=== PATIENT | male | born 1980 | race Caucasian/White ===

== ENCOUNTER 2022-01-25 08:02 | Day surgery (SDC) | payer OTHER, SELFPAY ==
[2022-01-22 13:25] VITALS: BMI 31.1
[2022-01-25 08:20] VITALS: BP 119/66; PULSE 76; RESP 18; TEMP 36.5; O2SAT 99
--- NOTE | 2022-01-25 08:20 | W.PM.OPSFHP ---
Same Day Surgery H&P Indication for Procedure/HPI DATE OF PROCEDURE: January 25, 2022 CHIEF COMPLAINT/INDICATIONFOR SURGICAL PROCEDURE: I am here for I am here for colonoscopy PREOP DIAGNOSIS: History of Crohn's disease PLANNED PROCEDURE: Operation Date: 01/25/22 09:30 Proposed Procedures p Colonoscopy 90353/bleeding per rectum K62.5/cronhs dis K50.90/(Not Applicable) - Иван Gramajo MD 11/22/2021 This is a pleasant 41 years old gentleman with well-known history of Crohn's disease and has been treated by medical community arts officer in the past.? I have seen the patient back in 2018 and did perform an EGD and colonoscopy where findings were normal of the EGD he had a colonoscopy did show terminal ileitis.? And patient was supposed to be followed up on by medical gastroenterology to manage his Crohn's disease medically but for some unclear reason that did not take place. Patient has issues with balance and riding a car creates a lot of issues for him and he would prefer to stay local if he does not have to go to [facility]. 01/25/2022 Patient comes today for colonoscopy for surveillance purposes ROS All systems have been reviewed negative except as for the above or per problem list. Medications/Allergies* Home Medications Medication Instructions Recorded Confirmed Type ascorbate calcium (vitamin C) 500 500 mg PO DAILY 11/22/21 01/22/22 History mg tablet lansoprazole 30 mg capsule,delayed 30 mg PO DAILY 11/22/21 01/22/22 History release (Prevacid) acetaminophen-caffeine 500 mg-65 2 tab PO Q12H PRN 01/22/22 01/22/22 History mg tablet (Excedrin Tension Headache) albuterol sulfate 90 mcg/actuation 2 puff INHALATION QID PRN 01/22/22 01/22/22 History aerosol inhaler (ProAir HFA) diphenhydramine HCl 25 mg capsule 25 mg PO BEDTIME PRN 01/22/22 01/22/22 History (Benadryl) fexofenadine 60 mg tablet (Martha 60 mg PO DAILY 01/22/22 01/22/22 History Allergy) losartan 25 mg tablet 25 mg PO BEDTIME 01/22/22 01/24/22 History Allergies/Adverse Reactions Allergy/AdvReac Type Severity Reaction Status Date / Time iodine Allergy Severe swelling Verified 01/25/22 08:24 latex Allergy Severe hives Verified 01/25/22 08:24 povidone-iodine Allergy Severe hives Verified 01/25/22 08:24 [From Betadine] shellfish derived Allergy Severe hives Verified 01/25/22 08:24 Pertinent History/Comorbid Conditions* Family History (Updated 11/22/21 @ 10:40 by Vandana Pandya) Diabetes CAD (coronary artery disease) Dementia Cancer Stroke Social History Smoking and tobacco status: former smoker Alcohol intake: never Lives independently: Yes Household members: spouse and children Marital status: Pertinent Exam Findings alert, oriented x 3, regular rate & rhythm and procedure specific exam findings (Abdominal exam is soft with mild tenderness left lower quadrant) Recommendations Surgery/Procedure today (Colonoscopy with possible biopsy) Coding Level of Care Code Acute Art Appraiser for Anne Marie Freeman
[2022-01-25] MEDS: sodium chloride 0.9% 1,000 ML 30 ML IV (08:41)
--- NOTE | 2022-01-25 09:00 | ANES.PREANE2 ---
Pre-Anesthetic Assessment Height/Weight: Height 1.93 m Weight 116.12 kg Temp Pulse Resp BP Pulse Ox 97.7 F 76 18 119/66 99 01/25/22 08:20 01/25/22 08:20 01/25/22 08:20 01/25/22 08:20 01/25/22 08:20 Preop Diagnosis: History of Crohn's disease Operation Date: 01/25/22 09:30 Proposed Procedures p Colonoscopy 25957/bleeding per rectum K62.5/cronhs dis K50.90/(Not Applicable) - Иван Gramajo MD Familial anesthetic complications: none Was Beta Jacque taken within 24 hours: N/A Was Clonidine taken within 24 hours: N/A Last intake: Intake Last Liquid Date 01/24/22 Last Liquid Time 22:00 Last Solid Date 01/23/22 Last Solid Time 20:00 Social No alcohol and No tobacco Exam alert, oriented x 3, clear to auscultation bilaterally and regular rate & rhythm Airway Submandibular: within normal limits Cervical ROM: within normal limits Mallampati: Class III Dentition: full Pulmonary None reported CV/HEM None reported None reported Hepatic None reported GI Gastroesophageal Reflux Disease Crohn's Metabolic None reported Musc/skel None reported Neuropsych Dizziness with standing/walking limiting un assisted mobility after [place] farm Anesthetic Plan ASA status: 2 Anesthesia: Anesthesia Evaluation, General and MAC Other: I discussed with the patient risks, goals, and benefits of MAC and general anesthesia. We discussed spectrum of MAC anesthesia including conversion to general as well as possibility of recall of intraoperative stimuli including discomfort/pain. Patient agrees to proceed with MAC. Risk of > 500 ml blood loss (7ml/kg in children): No Medications/Allergies Home Medications Medication Instructions Recorded Confirmed Last Taken Type ascorbate calcium (vitamin C) 500 500 mg PO DAILY 11/22/21 01/25/22 01/24/22 History mg tablet lansoprazole 30 mg capsule,delayed 30 mg PO DAILY 11/22/21 01/25/22 01/25/22 05:15 History release (Prevacid) acetaminophen-caffeine 500 mg-65 2 tab PO Q12H PRN 01/22/22 01/25/22 01/25/22 05:15 History mg tablet (Excedrin Tension Headache) albuterol sulfate 90 mcg/actuation 2 puff INHALATION QID PRN 01/22/22 01/25/22 1 Week Ago History aerosol inhaler (ProAir HFA) ~01/18/22 diphenhydramine HCl 25 mg capsule 25 mg PO BEDTIME PRN 01/22/22 01/25/22 01/23/22 History (Benadryl) fexofenadine 60 mg tablet (Martha 60 mg PO DAILY 01/22/22 01/25/22 01/24/22 History Allergy) losartan 25 mg tablet 25 mg PO BEDTIME 01/22/22 01/25/22 01/24/22 18:00 History Allergies Allergy/AdvReac Type Severity Reaction Status Date / Time iodine Allergy Severe swelling Verified 01/25/22 08:32 latex Allergy Severe hives Verified 01/25/22 08:32 povidone-iodine Allergy Severe hives Verified 01/25/22 08:32 [From Betadine] shellfish derived Allergy Severe hives Verified 01/25/22 08:32 Current Medications Generic Name Dose Route Start Last Admin Trade Name Freq PRN Reason Stop Dose Admin Sodium Chloride 1,000 mls @ 30 mls/hr 01/25/22 08:15 01/25/22 08:41 Sodium Chloride 0.9% IV 01/26/22 08:14 30 mls/hr .Q24H JOSE J Administration PFSH Anesthesia Family History Other CAD (coronary artery disease) Cancer Dementia Diabetes Stroke Social History Smoking and tobacco status: former smoker Alcohol intake: never Lives independently: Yes Household members: spouse and children Marital status: Data Anesthesia Cardiac Studies: No Data to Display
[2022-01-25] MEDS: ondansetron 2 mg/ML SDV 2 mL 4 MG IVP (09:02)
[2022-01-25] MEDS: famotidine 20 mg/2 mL INJ IVP (09:03)
[2022-01-25 09:43] VITALS: BP 109/65; PULSE 63; RESP 17; TEMP 36.1; O2SAT 92
--- NOTE | 2022-01-25 09:50 | ANE.PACU2 ---
Documented by User: Corina Gallegos CRNA 01/25/22 09:50 Inpatient post-anesthesia follow up: Airway intact: Yes Vital signs: Temperature 97 F Pulse Rate 17 Respiratory Rate 17 Blood Pressure 109/65 Pulse Oximetry 92 Oxygen Delivery Me thod Room Air Oxygen Flow Rate Fraction of Inspir ed Oxygen Hydration adequate: Yes Nausea and vomiting: No Pain level: 1 Mental status: Baseline
[2022-01-25 09:52] VITALS: BP 128/62; PULSE 60; RESP 16; O2SAT 97
== END 2022-01-25 10:10 | disposition home or self-care (01) ==
PROVIDERS: PCP Nurse Practitioner Family; Visit Provider Surgery
PROC: 0DJD8ZZ Inspection of Lower Intestinal Tract, Via Natural or Artificial Opening Endoscopic (ICD-10-PCS; CPT 45378; principal; 2022-01-25 09:30)
DX: K62.5 Hemorrhage of anus and rectum (principal); K50.90 Crohn's disease, unspecified, without complications; K57.30 Diverticulosis of large intestine without perforation or abscess without bleeding; K21.9 Gastro-esophageal reflux disease without esophagitis; Z87.891 Personal history of nicotine dependence; Z82.49 Family history of ischemic heart disease and other diseases of the circulatory system; Z83.3 Family history of diabetes mellitus; Z82.3 Family history of stroke
CPT/HCPCS: 45380; 88305; J2405; J2704; J3490; J7030

== ENCOUNTER 2023-06-07 09:52 | Outpatient (CLI) | payer OTHER, SELFPAY ==
--- NOTE | 2023-06-07 09:58 | XR_ITS ---
WS: [id number] XR chest 2V* [id number] REASON FOR EXAM: SHORTNESS OF BREATH FINDINGS: The heart and the mediastinum are within normal limits. Calcified granulomatous disease in both hemithoraces. No active pulmonary parenchymal or pleural disease is identified. Bony thorax is intact without significant focal abnormality. IMPRESSION: No acute chest abnormality.
== END 2023-06-07 09:53 | disposition home or self-care (01) ==
PROVIDERS: PCP Family Medicine; Visit Provider Family Medicine
DX: R06.02 Shortness of breath (principal)
CPT/HCPCS: 71046

== ENCOUNTER 2024-11-24 07:55 | Outpatient (CLI) | payer OTHER, SELFPAY | END 2024-11-24 07:56 | disposition home or self-care (01) | PROVIDERS: PCP Family Medicine; Visit Provider Family Medicine | DX: J45.40 Moderate persistent asthma, uncomplicated (principal) | CPT/HCPCS: 94010; 94726; 94729 ==

== ENCOUNTER 2025-03-06 21:12 | Emergency (ER) | payer OTHER, SELFPAY ==
[2025-03-06 21:20] VITALS: BP 150/75; PULSE 102; RESP 16; TEMP 36.9; O2SAT 94; BMI 32.1
[2025-03-06 21:48] LABS: Bilirubin Urine Negative (Negative); Blood Urine Trace (Negative); Glucose Urine UA Negative (Normal); Ketones Urine Negative (Negative); Leukocyte Esterase Urine 2+ (Negative); Nitrate Urine Positive (Negative); Protein Urine Negative (Negative); Specific Gravity, Urine 1.011 (1.005-1.030); Urine Appearance Clear (CLEAR); Urine Color Dark Yellow (Yellow); pH Urine 6.5 (5-7)
[2025-03-06 21:59] LABS: Bacteria Urine 4+ /hpf; Hyaline Casts Urine 0-4 /lpf; RBC Urine 0-2 /hpf (0-2); Squamous Epithelial Cell Urine 0-5 /hpf (0-5); WBC Urine 51-100 /hpf (0-5)
[2025-03-06 22:00] VITALS: BP 128/72; PULSE 89; RESP 16; O2SAT 98
[2025-03-06 22:04] LABS: Add Urine Culture? Yes
[2025-03-06] MEDS: cefTRIAXone 1,000 MG in water for injection-sterile 2.1 ML 999 MG IM (22:28)
[2025-03-06] MEDS: ondansetron hcl ODT 4 mg Tab PO (22:29)
--- NOTE | 2025-03-06 22:42 | W.ED.MALEGU ---
HPI - Male Genitourinary General: Chief complaint: Urogenital-Male Stated complaint: uti is worse pain severe n/v Time Seen by Provider: 03/06/25 21:35 History of Present Illness: Patient is a 44-year-old male with history of Crohn's disease that awoke yesterday with pain around his penis, suprapubic area, and left flank. He has not had nausea and vomiting. He did get Azo Standard at [facility]. He noted a temperature of 101 ?F today. When he was urinating prior to arrival, he felt lightheaded and dizzy suddenly, and then awoke on his bed. He had a few seconds of LOC. He thinks this was due to the pain when voiding. He has not had any vomiting, however a little bit of nausea associated with the pain. Associated symptoms: Reports dysuria and nausea; Deny hematuria or vomiting Related Data Home Medications ?Medication ?Instructions ?Recorded ?Confirmed ascorbate calcium (vitamin C) 500 500 mg PO DAILY 11/22/21 06/02/23 mg tablet lansoprazole 30 mg capsule,delayed 30 mg PO DAILY 11/22/21 06/02/23 release (Prevacid) acetaminophen-caffeine 500 mg-65 2 tab PO Q12H PRN Headache 01/22/22 06/02/23 mg tablet (Excedrin Tension Headache) albuterol sulfate 90 mcg/actuation 2 puff inhalation QID PRN 01/22/22 06/02/23 aerosol inhaler (ProAir HFA) Shortness Of Breath diphenhydramine HCl 25 mg capsule 25 mg PO BEDTIME PRN Allergy 01/22/22 06/02/23 (Benadryl) Symptoms fexofenadine 60 mg tablet (Martha 60 mg PO DAILY 01/22/22 06/02/23 Allergy) losartan 25 mg tablet 25 mg PO BEDTIME 01/22/22 06/02/23 calcium 500 mg (as carbonate)-D3 1 tab PO DAILY 06/02/23 06/02/23 2.5 mcg (100 unit) chewable tablet Previous Rx's ?Medication ?Instructions ?Recorded calcipotriene 0.005 % topical cream 1 applic topical DAILY #120 grams 12/05/22 clobetasol 0.05 % topical ointment 1 applic topical ONCE 3 weeks #45 12/05/22 grams pantoprazole 40 mg tablet,delayed 40 mg PO BID 6 weeks #84 tabs 03/06/23 release (Protonix) sulfasalazine 500 mg tablet 0.5 g PO BID #60 tabs 03/06/23 prednisone 20 mg tablet 20 mg PO BID 5 days #10 tabs 06/02/23 cefdinir 300 mg capsule 300 mg PO BID 10 days #20 caps 03/06/25 ondansetron 4 mg disintegrating 4 mg PO Q8H PRN nausea and 03/06/25 tablet vomiting 4 days #10 tabs Allergies Allergy/AdvReac Type Severity Reaction Status Date / Time iodine Allergy Severe swelling Verified 06/02/23 15:01 latex Allergy Severe hives Verified 06/02/23 15:01 povidone-iodine (From Allergy Severe hives Verified 06/02/23 15:01 Betadine) shellfish derived Allergy Severe hives Verified 06/02/23 15:01 [place] And Derivatives Allergy Intermediate ADR-Itching Verified 06/02/23 15:01 rice Allergy ALGY-Anaphy Verified 03/06/25 21:23 laxis Review of Systems General: Reports: 10 or more systems reviewed and unremarkable except in HPI and below Const: Denies: fever(s) or chills Eyes: Denies: change in vision or blurry vision ENMT: Denies: throat pain or mouth pain Card: Denies: chest pain or palpitations Resp: Denies: dyspnea or non-productive cough GI: Reports: abdominal pain and nausea; Denies: vomiting, heartburn or hematochezia : Reports: flank pain, difficulty urinating, dysuria and genital pain; Denies: hematuria, genital lesions, penile discharge, testicular pain or difficulty with ejactulations Musc: Denies: neck pain, back pain or extremity pain Skin/Breast: Denies: rash or pruritus Neuro: Denies: headache(s) or numbness in extremities Psych: Denies: anxiety or depression Juan Carlos/Lymph: Denies: easy bruising or easy bleeding All/Imm: Denies: urticaria or throat swelling PFSH ED PFSH: Medical History History of head injury Surgical History History of colonoscopy with polypectomy 2019 History of esophagogastroduodenoscopy (EGD) 2019 History of hip surgery right 2019 History of knee surgery left 2008 History of shoulder surgery 1999 Family History Other CAD (coronary artery disease) Cancer Dementia Diabetes Stroke Social History Smoking and tobacco/nicotine status: former use of tobacco/nicotine Alcohol intake: never Substance/Drug Use: never Lives independently: Yes Household members: spouse and children Marital status: Physical Exam Const: COMMON NORMALS: patient oriented x3 HENMT: COMMON NORMALS: normocephalic, atraumatic and hearing grossly normal bilaterally HEAD & SCALP: normocephalic and atraumatic Neck/C-Spine: COMMON NORMALS: full ROM and no lymphadenopathy Resp: COMMON NORMALS: normal respiratory effort and clear to auscultation bilaterally AUSCULTATION: clear to auscultation bilaterally GI: COMMON NORMALS: Normal to inspection, nondistended, normoactive bowel sounds present, Soft to palpation and non-tender AUSCULTATION: Yes normoactive bowel sounds PALPATION: Yes Soft to palpation : BLADDER/KIDNEY EXAM: Yes CVA tenderness on the left Back/Pelvis: GENERAL BACK: Yes CVA tenderness Extremity: COMMON NORMALS: normal to inspection, full ROM and capillary refill normal Neuro: COMMON NORMALS: patient oriented x3 and CN's II-XII intact bilaterally Psych: COMMON NORMALS: Normal thought process present, cooperative, normal affect and speech normal SPEECH: Yes normal speech THOUGHT PROCESS: Normal thought process present Skin: COMMON NORMALS: no rashes or lesions noted and no wounds GENERAL SKIN EXAM: no rashes or lesions noted Course Vital Signs: Vital signs: Vital Signs Temperature 98.5 F 03/06/25 21:20 Pulse Rate 89 03/06/25 23:12 Respiratory Rate 16 03/06/25 23:12 Blood Pressure 122/79 03/06/25 23:12 Pulse Oximetry 98 03/06/25 23:12 Oxygen Delivery Me thod Room Air 03/06/25 22:00 [facility] - Male Medical Decision Making Patient is a 44-year-old male with history of Crohn's disease with abrupt onset upon awakening of dysuria, left flank pain. He did not have any hematuria, and therefore less likely associated with renal colic/urolithiasis. He has nitrite positive urine with greater than 100 WBCs. This is consistent with pyelonephritis. He is not having any emesis, minimal amount of nausea, and therefore this should be treated at home prior to CT. Discussed with patient that if he has worsening symptoms, to return to ED and workup would be expanded at that time. No need for head CT since he is not on anticoagulation, he has not had nausea, vomiting, and does not have any neurological deficits. Discussed all the above with the patient. Will give Rocephin x 1 here, send Zofran, and cefdinir to pharmacy, and outpatient follow-up. Microbiology/sensitivities is pending. Lab Data Laboratory Results Urine Color Dark yellow (Yellow) A 03/06/25 21:37 Urine Appearance Clear (CLEAR) 03/06/25 21:37 Urine pH 6.5 (5-7) 03/06/25 21:37 Ur Specific Roberts 1.011 (1.005-1.030) 03/06/25 21:37 Urine Protein Negative (Negative) 03/06/25 21:37 Urine Glucose (UA) Negative (Normal) 03/06/25 21:37 Urine Ketones Negative (Negative) 03/06/25 21:37 Urine Blood Trace (Negative) A 03/06/25 21: Urine Nitrate Positive (Negative) A 03/06/25 21:37 Urine Bilirubin Negative (Negative) 03/06/25 21:37 Urine Urobilinogen 1.0 mg/dL (Negative) 03/06/25 21:37 Ur Leukocyte Esterase 2+ (Negative) A 03/06/25 21:37 Urine RBC 0-2 /hpf (0-2) 03/06/25 21:37 Urine WBC 51-100 /hpf (0-5) H 03/06/25 21:37 Ur Squamous Epith Cells 0-5 /hpf (0-5) 03/06/25 21:37 Amorphous Sediment Not Reportable 03/06/25 21:37 Urine Bacteria 4+ /hpf (NONE) H 03/06/25 21:37 Hyaline Casts 0-4 /lpf H 03/06/25 21:37 No radiology studies performed this visit Discharge Plan Discharge Patient Disposition: Home Clinical Impression: Pyelonephritis, Syncope and collapse Urinary tract infection Qualifiers: Urinary tract infection type: acute pyelonephritis Qualified Code(s): N10 - Acute pyelonephritis Condition: Stable Prescriptions: New cefdinir 300 mg capsule 300 mg PO BID 10 Days Qty: 20 0RF ondansetron 4 mg tablet,disintegrating 4 mg PO Q8H PRN (Reason: nausea and vomiting) 4 Days Qty: 10 0RF No Action lansoprazole [Prevacid] 30 mg capsule,delayed release(DR/EC) 30 mg PO DAILY ascorbate calcium (vitamin C) 500 mg tablet 500 mg PO DAILY clobetasol 0.05 % ointment 1 applic topical ONCE 21 Days Qty: 45 1RF Rx Instructions: Apply to affected area twice a day for 3 weeks, off for 1 week x 3 mo. not for face calcipotriene 0.005 % cream 1 applic topical DAILY Qty: 120 3RF Rx Instructions: rub in gently and completely sulfasalazine 500 mg tablet 0.5 g PO BID Qty: 60 11RF Rx Instructions: give with food (meal/snack) pantoprazole [Protonix] 40 mg tablet,delayed release (DR/EC) 40 mg PO BID 42 Days Qty: 84 1RF calcium carbonate-vitamin D3 500 mg-2.5 mcg (100 unit) tablet,chewable 1 tab PO DAILY prednisone 20 mg tablet 20 mg PO BID 5 Days Qty: 10 0RF fexofenadine [Martha Allergy] 60 mg tablet 60 mg PO DAILY Excedrin Tension Headache 500-65 mg Tablet 2 tab PO Q12H PRN (Reason: Headache) diphenhydramine HCl [Benadryl] 25 mg Capsule 25 mg PO BEDTIME PRN (Reason: Allergy Symptoms) losartan 25 mg Tablet 25 mg PO BEDTIME albuterol sulfate [ProAir HFA] 90 mcg/actuation HFA aerosol inhaler 2 puff INHALATION QID PRN (Reason: Shortness Of Breath) Discharge Orders: Discharge ED (Routine); Ordered 03/06/25 Ordered By: Paris Alvarez Referrals: Mookie Casper MD [Primary Care Provider, Family Practice] Discharge Diet: Usual diet Patient Instructions: Urinary Tract Infection in Men (ED), Pyelonephritis Activity Restrictions/Additional Instructions: Increase water/noncaffeinated beverage intake Take antibiotics as prescribed. You will need to take a probiotic [id number] or active culture yogurt to avoid infectious diarrhea Your urine will be cultured. Antibiotics have been utilized to cover typical microbes for this area. If this needs to be changed, someone will call you and report to you. Return to ED if refractory as we discussed nausea and vomiting. Zofran has been sent to the pharmacy, however for ongoing symptoms return to ED. You may take the Azo standard, but this will not cover antibiotics for UTI/kidney infection. No evidence of kidney stone. You did not have blood in your urine. Stand Alone Forms: Work/School Release Print Language: [place] Coding Level of Care Code ED Grinding Wheel Dresser for Anne Marie Freeman
[2025-03-06] MEDS: ketorolac 30 mg/mL INJ 10 MG IM (22:48)
[2025-03-06 23:12] VITALS: BP 122/79; PULSE 89; RESP 16; O2SAT 98
== END 2025-03-06 23:13 | disposition home or self-care (01) ==
PROVIDERS: Emergency Medicine; Emergency Provider Physician Assistant; PCP Family Medicine
DX: N10 Acute pyelonephritis (principal); R55 Syncope and collapse; Z87.891 Personal history of nicotine dependence
CPT/HCPCS: 81001; 87077; 87086; 87186; 96372; 99284; J0696; J1885; Q0162

== ENCOUNTER → 2025-06-02 09:18 | Outpatient (BNVA) | payer OTHER, SELFPAY | PROVIDERS: PCP Family Medicine; Visit Provider Registered Nurse Neonatal Intensive Care | DX: S60.221A Contusion of right hand, initial encounter (principal); X58.XXXA Exposure to other specified factors, initial encounter | CPT/HCPCS: 73130 ==